=== PATIENT | male | born 1970 | race Caucasian/White ===

== ENCOUNTER → 2018-04-29 | Outpatient (CLI) | payer BC ==
[~2018-04-29] MED LIST: ALLOPURINOL100 MG PO; ASPIRIN CHEWABL81 MG PO; BASAG SOL SC; FISH OIL CONC1000 M2 PO; JANUVIA50 MG PO; LASIX40 MG PO; LIPITOR10 MG PO; PREDNISONE10 MG PO
--- NOTE | ~2018-04-29 | ST ---
[place], [place] EXERCISE STRESS TEST REPORT NAME: PAPITO TINAJERO UNIT #: [id number] ROOM: DOCTOR: AYAH CLEARY MD BIRTHDATE: [birth year] DOS: 04/29/2018 Lexiscan stress EKG REFERRING PHYSICIAN: [facility] INDICATION: Chest pain. The patient underwent standard Lexiscan protocol stress EKG. The patient's baseline EKG showed sinus rhythm with ventricular pacing. The patient's baseline heart rate is 74 beats per minute with a blood pressure of 104/62. The patient's peak heart was 83 beats per minute with a blood pressure 120/80. The patient had no chest pain or anginal symptoms. No arrhythmias were noted. Nondiagnostic EKG secondary to pacing. SUMMARY OF FINDINGS: Nondiagnostic EKG secondary pacing with no ischemic symptoms. Please see separate report for perfusion scan results. AYAH CLEARY MD CM:STRESS:EXERCISE STRESS TEST REPORT [id number] AYAH CLEARY MD
== END | disposition home or self-care (01) ==
LOC: CARD 01:53
DX: I25.10 Atherosclerotic heart disease of native coronary artery without angina pectoris (principal); I25.5 Ischemic cardiomyopathy; I10 Essential (primary) hypertension; R53.81 Other malaise

== ENCOUNTER → 2018-05-05 | Outpatient (CLI) | payer BC | END | disposition home or self-care (01) | LOC: CARD 02:30 | DX: I25.10 Atherosclerotic heart disease of native coronary artery without angina pectoris (principal); I25.5 Ischemic cardiomyopathy; I51.7 Cardiomegaly ==

== ENCOUNTER → 2020-06-08 | Outpatient (CLI) | payer BC | END | disposition home or self-care (01) | LOC: CARD 14:00 | PROVIDERS: ATTEND Internal Medicine Cardiovascular Disease | DX: I34.0 Nonrheumatic mitral (valve) insufficiency (principal); I42.9 Cardiomyopathy, unspecified ==

== ENCOUNTER → 2020-09-04 | Outpatient (CLI) | payer BC | END | disposition home or self-care (01) | LOC: COVID19 12:22 | PROVIDERS: ATTEND Physician Assistant | DX: U07.1 COVID-19 (principal) ==